=== PATIENT | male | born 1955 | race Caucasian/White ===

== ENCOUNTER 2021-09-17 22:23 | Emergency (ER) | payer OTHER, MEDICARE | END 2021-09-17 23:42 | disposition home or self-care (01) | LOC: JP.ED 22:23 | DX: F10.920 Alcohol use, unspecified with intoxication, uncomplicated (principal); V48.9XXA Unspecified car occupant injured in noncollision transport accident in traffic accident, initial encounter; Y92.410 Unspecified street and highway as the place of occurrence of the external cause | CPT/HCPCS: 36415; 70450; 71046; 71046-26; 72170; 72170-26; 80053; 80305-QW; 80307; 81001; 85025; 99284-25; 99291 ==